=== PATIENT | female | born 1985 | race African-American/Black ===

== ENCOUNTER 2016-11-18 09:07 | Emergency (ER) | payer SELFPAY ==
[~2016-11-18] VITALS: Ht 165.1 cm; Wt 144.2 kg
[2016-11-18 12:00] VITALS: BP 138/90
[2016-11-18 12:04] VITALS: BP 138/90
[2016-11-18] MEDS ORDERED: LIDOCAINE 2%HCL (LOCAL ANESTH.) INJ 20ML MDV ONE (12:11)
[2016-11-18] MEDS ORDERED: methylPREDNISolone SOD SUCC 125 MG/2 ML VL IM ONE (12:15)
[2016-11-18] MEDS ORDERED: cefTRIAXone SOD 1,000 MG VL IM ONE (12:15)
[2016-11-18] MEDS ORDERED: LIDOCAINE HCL 2 % INJ 2ML MPF IJ ONE (12:30)
== END 2016-11-18 12:37 | disposition home or self-care (01) ==
LOC: ER 09:07
DX: J03.90 Acute tonsillitis, unspecified (principal)
CPT/HCPCS: 96372; 96374; 99284; J0696; J2930